=== PATIENT | female | born 1955 | race Caucasian/White ===

== ENCOUNTER 2017-04-12 12:25 | Emergency (ER) | payer BC ==
[~2017-04-12] VITALS: Ht 152.4 cm; Wt 59.0 kg
--- NOTE | 2017-04-12 14:11 | NUR ---
Patient discharged to home in stable conditon. Written and verbal after care instructions given. Patient verbalizes understanding of instructions.PT WALKS IN STEADY GAIT, ACCOMPANIED BY FAMILY MEMBER. PT NO SIGN OF DISTRESS, NO BREATHING OR SWALLOWING DIFFICULTY AT THIS TIME
[2017-04-12 14:22] VITALS: BP 131/61
== END 2017-04-12 14:24 | disposition home or self-care (01) ==
LOC: ER 12:25
DX: L25.9 Unspecified contact dermatitis, unspecified cause (principal)
CPT/HCPCS: A4663

== ENCOUNTER 2017-09-21 21:10 | Emergency (ER) | payer BC ==
[~2017-09-21] VITALS: Ht 157.5 cm; Wt 56.7 kg
--- NOTE | 2017-09-21 21:35 | NUR ---
DR THOMAS KOO MD AT BEDSIDE FOR MSE.
--- NOTE | 2017-09-21 21:46 | NUR ---
RADIOLOGY AT BEDSIDE FOR XRAY.
[2017-09-21 21:53] LABS: BASOPHILS % (AUTO) 0.3 % (0.0-2.0); EOSINOPHILS % (AUTO) 0.3 % (0.0-7.0); HEMATOCRIT 37.7 % (31.2-41.9); HEMOGLOBIN 13.4 g/dL (10.9-14.3); LYMPHOCYTES # (AUTO) 0.6 K/uL (20.0-40.0); LYMPHOCYTES % (AUTO) 10.3 % (20.5-51.5); MEAN CORPUSCULAR HGB CONC 36 g/dL (32.3-35.6); MEAN CORPUSCULAR VOLUME 86.8 fL (75.5-95.3); MONOCYTES # (AUTO) 0.2 K/uL (2.0-10.0); MONOCYTES % (AUTO) 2.8 % (0.0-11.0); NEUTROPHILS # (AUTO) 5.1 K/uL (1.8-8.9); NEUTROPHILS % (AUTO) 86.3 % (38.5-71.5); PLATELET COUNT (AUTO) 315 K/uL (179-408); RED BLOOD CELL COUNT(AUTO) 4.34 MIL/uL (3.63-4.92); WHITE BLOOD COUNT (AUTO) 5.9 K/uL (3.8-11.8)
[2017-09-21 22:02] LABS: CREATININE 0.7 mg/dL (0.6-1.3); POTASSIUM 3.5 mmol/L (3.5-5.1)
[2017-09-21] MEDS ORDERED: TRAMADOL HCL 50 MG TABLET ONE (22:28)
[2017-09-21] MEDS ORDERED: TRAMADOL HCL 50 MG TABLET PO ONE (22:30)
--- NOTE | 2017-09-21 22:37 | NUR ---
Patient discharged to home in stable conditon. Written and verbal after care instructions given. Patient verbalizes understanding of instructions. Pt ambulated from ER w/ steady gait, accompanied by family. Denies CP, SOB. No distress noted. Pt took all personal belongings.
[2017-09-21 22:40] VITALS: BP 111/64
== END 2017-09-21 22:40 | disposition home or self-care (01) ==
LOC: ER 21:14
DX: R07.9 Chest pain, unspecified (principal); Z85.3 Personal history of malignant neoplasm of breast
CPT/HCPCS: 36415; 71045; 80048; 85025; 99285; A4663

== ENCOUNTER 2018-04-20 22:01 | Emergency (ER) | payer BC ==
[~2018-04-20] VITALS: Ht 154.9 cm; Wt 54.4 kg
--- NOTE | 2018-04-20 22:21 | NUR ---
Dr. Rachel at bedside for MSE
--- NOTE | 2018-04-20 22:23 | NUR ---
Pt ambulated in ER with stable gait with the c/o generalized abdominal pain with nausea x 1 day. Upon assessment, pt noted to have mild swelling on right groin area. Per pt, swelling has significantly gone down over the course of the day compared to now. Pt denies SOB, CP and dysuria. Pt is AAO x 4 and speaking in complete sentences. Safe environment implemented.
[2018-04-20 22:34] LABS: *BILIRUBIN,URIN NEGATIVE (NEGATIVE); *BLOOD, URINE NEGATIVE (NEGATIVE); *CLARITY,URINE CLEAR (CLEAR); *COLOR,URINE YELLOW (YELLOW); *KETONES,URINE NEGATIVE (NEGATIVE); *UROBILINOGEN,URINE 0.2 E.U./dl (NORMAL); LEUKOCYTE ESTERASE ,URINE TRACE (NEGATIVE); NITRITE, URINE NEGATIVE (NEGATIVE); PH,URINE 6.5 (5.0-8.0); UGLUCOSE NEGATIVE (NEGATIVE)
[2018-04-20 22:41] LABS: SQUAMOUS EPITHELIAL CELL,UR FEW /HPF (NONE SEEN)
[2018-04-20 22:54] LABS: BASOPHILS % (AUTO) 0.7 % (0.0-2.0); EOSINOPHILS # (AUTO) 0.2 K/uL (0.0-0.7); EOSINOPHILS % (AUTO) 2.5 % (0.0-7.0); HEMATOCRIT 37.9 % (31.2-41.9); HEMOGLOBIN 13.3 g/dL (10.9-14.3); LYMPHOCYTES # (AUTO) 2.7 K/uL (20.0-40.0); LYMPHOCYTES % (AUTO) 44.4 % (20.5-51.5); MEAN CORPUSCULAR HGB CONC 35 g/dL (32.3-35.6); MEAN CORPUSCULAR VOLUME 88.4 fL (75.5-95.3); MONOCYTES # (AUTO) 0.4 K/uL (2.0-10.0); MONOCYTES % (AUTO) 6.7 % (0.0-11.0); NEUTROPHILS # (AUTO) 2.8 K/uL (1.8-8.9); NEUTROPHILS % (AUTO) 45.7 % (38.5-71.5); PLATELET COUNT (AUTO) 351 K/uL (179-408); RED BLOOD CELL COUNT(AUTO) 4.28 MIL/uL (3.63-4.92); WHITE BLOOD COUNT (AUTO) 6.2 K/uL (3.8-11.8)
--- NOTE | 2018-04-20 23:03 | NUR ---
Pt back in ER from CT
[2018-04-20 23:08] LABS: CREATININE 0.6 mg/dL (0.6-1.3); POTASSIUM 3.7 mmol/L (3.5-5.1)
[2018-04-20 23:13] LABS: BILIRUBIN,DIRECT 0.1 mg/dL (0.0-0.2); BILIRUBIN,TOTAL 0.1 mg/dL (0.2-1.0); TOTAL PROTEIN, SERUM 7.6 g/dL (6.4-8.2)
--- NOTE | 2018-04-20 23:34 | NUR ---
Patient discharged to home in stable conditon. Written and verbal after care instructions given. Patient verbalizes understanding of instructions.
[2018-04-20 23:35] VITALS: BP 148/82
== END 2018-04-20 23:35 | disposition home or self-care (01) ==
LOC: ER 22:02
DX: K40.90 Unilateral inguinal hernia, without obstruction or gangrene, not specified as recurrent (principal)
CPT/HCPCS: 36415; 83690; 85025; A4663

== ENCOUNTER 2019-05-30 21:35 | Emergency (ER) | payer BC ==
[~2019-05-30] VITALS: Ht 165.1 cm; Wt 55.8 kg
--- NOTE | 2019-05-30 22:13 | NUR ---
Dr. Deshpande at bedside for MSE
[2019-05-30] MEDS ORDERED: TRAMADOL HCL 50 MG TABLET PO ONE (23:15)
[2019-05-30] MEDS ORDERED: TRAMADOL HCL 50 MG TABLET ONE ×2 (23:18→23:23)
--- NOTE | 2019-05-30 23:30 | NUR ---
Patient discharged to home in stable conditon. Written and verbal after care instructions given. Patient verbalizes understanding of instructions. Patient ambulating with steady gait. Told patient not drive. Patient's daughter at bedside to drive patient home
[2019-05-30 23:31] VITALS: BP 134/71
== END 2019-05-30 23:30 | disposition home or self-care (01) ==
LOC: ER 21:37
DX: R51 Headache (principal)
CPT/HCPCS: 70450; A4663